=== PATIENT | female | born 1975 | race Asian ===

== ENCOUNTER 2019-01-08 12:11 | Inpatient (IN) | payer OTHER ==
[~2019-01-08] VITALS: Ht 154.9 cm; Wt 79.4 kg
[2019-01-08 13:01] VITALS: BP_SYST 151
[2019-01-08] MEDS ORDERED: PIPERACILLIN/TAZO 3.375 GM in NS 50 ML IV ONE (13:45)
[2019-01-08] MEDS ORDERED: MORPHINE 4 MG/ML INJ. SYRINGE IVP ONE ×2 (13:45→15:45)
[2019-01-08] MEDS ORDERED: ONDANSETRON HCL 4 MG/2 ML VIAL IVP ONE (13:45)
[2019-01-08 14:05] LABS: BASOPHILS % (AUTO) 0.3 % (0.0-2.0); EOSINOPHILS % (AUTO) 0.1 % (0.0-4.0); HEMATOCRIT 39.6 % (36-48); HEMOGLOBIN 13.2 g/dL (12.0-16.0); LYMPHOCYTES # (AUTO) 1.2 K/uL (1.0-5.5); LYMPHOCYTES % (AUTO) 10.4 % (20.5-51.5); MEAN CORPUSCULAR HEMOGLOBIN 28 pg (27-31); MEAN CORPUSCULAR HGB CONC 33 % (32-36); MEAN CORPUSCULAR VOLUME 85 fL (79.0-98.0); MONOCYTES # (AUTO) 0.5 K/uL (0.0-1.0); MONOCYTES % (AUTO) 4.1 % (1.7-9.3); NEUTROPHILS # (AUTO) 10.2 K/uL (1.8-7.7); NEUTROPHILS % (AUTO) 85.1 % (40.0-70.0); PLATELET COUNT (AUTO) 307 K/uL (130-430); RED BLOOD CELL COUNT(AUTO) 4.68 MIL/uL (4.2-6.2); RED CELL DISTRIBUTION WIDTH 13.8 % (9.0-15.0); WHITE BLOOD COUNT (AUTO) 11.9 K/uL (4.8-10.8)
[2019-01-08 14:19] LABS: CALCIUM 8.9 mg/dL (8.4-11.0); CREATININE 0.82 mg/dL (0.55-1.30); POTASSIUM 3.7 mmol/L (3.5-5.1)
[2019-01-08] MEDS ORDERED: PIPERACILLIN/TAZOBACTAM 3.375 GM/VIAL (ZOSYN) IV ONE (14:19)
[2019-01-08] MEDS ORDERED: ONDANSETRON HCL 4 MG/2 ML VIAL ONE (14:22)
[2019-01-08 14:25] LABS: TOTAL BILIRUBIN 0.6 mg/dL (0.0-1.0)
[2019-01-08] MEDS ORDERED: MORPHINE 4 MG/ML INJ. SYRINGE ONE (15:44)
[2019-01-08] MEDS ORDERED: FLU VACC QUAD 2019-20(36MOS UP) 60 MCG/0.5 ML SYRINGE I.M. PRN (16:15)
[2019-01-08] MEDS ORDERED: ONDANSETRON HCL 4 MG/2 ML VIAL IVP PRN (16:30)
[2019-01-08] MEDS ORDERED: MORPHINE 2 MG/ML INJ. SYRINGE IVP PRN (16:30)
[2019-01-08] MEDS ORDERED: ACETAMINOPHEN 650 MG SUPP.RECT RC PRN (17:30)
[2019-01-08] MEDS ORDERED: PANTOPRAZOLE SODIUM 40 MG/VIAL (PROTONIX) IVP ONE (17:30)
[2019-01-08] MEDS ORDERED: HYDROmorphone 1 MG INJ. 1 MG/ML AMPUL IVP ONE (17:30)
[2019-01-08] MEDS ORDERED: ENALAPRILAT DIHYDRATE 1.25 MG/ML VIAL IVP PRN (17:45)
[2019-01-08] MEDS: POTASSIUM CHLORIDE 10 MEQ in NACL 0.9% 1,000 ML IV SCH (18:45)
[2019-01-08] MEDS ORDERED: IOHEXOL 100 ML IV ONE (19:09)
[2019-01-08 20:00] VITALS: BP_SYST 143
[2019-01-08] MEDS: HYDROmorphone 2 MG/ML VIAL IVP PRN (21:14)
[2019-01-08 22:38] LABS: BILIRUBIN,URINE NEGATIVE (NEGATIVE); CLARITY/URINE CLEAR (CLEAR); COLOR,URINE YELLOW (YELLOW); GLUCOSE,URINE NEGATIVE (NEGATIVE); KETONES,URINE 3+ (NEGATIVE); LEUKOCYTE ESTERASE ,URINE NEGATIVE (NEGATIVE); NITRITE, URINE NEGATIVE (NEGATIVE); PROTEIN URINE 2+ (NEGATIVE); UROBILINOGEN,URINE 0.2 (0.2-1.0)
[2019-01-08 22:48] LABS: BLOOD, URINE TRACE (NEGATIVE)
[2019-01-08 22:50] LABS: BACTERIA,URINE FEW /HPF (None Seen); HCG,QUAL RESULT NEGATIVE (NEGATIVE); RBC,URINE 0-3 /HPF (0-3); WBC,URINE 0-3 /HPF (0-3)
[2019-01-09 00:39] VITALS: BP_SYST 119
[2019-01-09] MEDS: HYDROmorphone 2 MG/ML VIAL IVP PRN ×3 (01:13→09:16)
[2019-01-09] MEDS: POTASSIUM CHLORIDE 10 MEQ in NACL 0.9% 1,000 ML IV SCH ×2 (06:01→08:23)
[2019-01-09 06:19] LABS: BASOPHILS % (AUTO) 0.1 % (0.0-2.0); MEAN CORPUSCULAR HEMOGLOBIN 28 pg (27-31); MEAN CORPUSCULAR HGB CONC 33 % (32-36); RED CELL DISTRIBUTION WIDTH 14.3 % (9.0-15.0)
[2019-01-09 06:32] LABS: INR 1.1 (0.8-1.2); PROTHROMBIN TIME 10.6 SECS (9.5-12.5)
[2019-01-09 07:07] LABS: HEMOGLOBIN 12.9 g/dL (12.0-16.0); LYMPHOCYTES # (AUTO) 0.7 K/uL (1.0-5.5); LYMPHOCYTES % (AUTO) 4.4 % (20.5-51.5); MEAN CORPUSCULAR VOLUME 86 fL (79.0-98.0); MONOCYTES # (AUTO) 0.2 K/uL (0.0-1.0); MONOCYTES % (AUTO) 1.6 % (1.7-9.3); NEUTROPHILS # (AUTO) 14.7 K/uL (1.8-7.7); NEUTROPHILS % (AUTO) 93.9 % (40.0-70.0); PLATELET COUNT (AUTO) 276 K/uL (130-430); RED BLOOD CELL COUNT(AUTO) 4.56 MIL/uL (4.2-6.2); WHITE BLOOD COUNT (AUTO) 15.7 K/uL (4.8-10.8)
[2019-01-09 07:36] LABS: ALBUMIN 3.3 g/dL (3.4-4.8); BILIRUBIN,DIRECT 0.2 mg/dL (0.0-0.3); CALCIUM 8.3 mg/dL (8.4-11.0); CREATININE 0.99 mg/dL (0.55-1.30); POTASSIUM 3.4 mmol/L (3.5-5.1); TOTAL BILIRUBIN 0.7 mg/dL (0.0-1.0)
[2019-01-09 08:00] VITALS: BP_SYST 119
[2019-01-09] MEDS: PANTOPRAZOLE SODIUM 40 MG/VIAL (PROTONIX) IVP SCH (08:23)
[2019-01-09] MEDS ORDERED: POTASSIUM CHLORIDE 30 MEQ in NS 250 ML IV ONE (10:00)
[2019-01-09] MEDS ORDERED: LR 1,000 ML IV SCH (13:06)
[2019-01-09] MEDS ORDERED: METOCLOPRAMIDE HCL 10 MG/2 ML VIAL IVP PRN (13:15)
[2019-01-09] MEDS ORDERED: MORPHINE 4 MG/ML INJ. SYRINGE IVP PRN ×2 (13:15)
[2019-01-09] MEDS ORDERED: metroNIDAZOLE 500 mg/NS 100 ML IV SCH (13:45)
[2019-01-09] MEDS ORDERED: ACETAMINOPHEN 325 MG TABLET PO PRN (13:45)
[2019-01-09] MEDS ORDERED: ONDANSETRON HCL 4 MG/2 ML VIAL IVP PRN (13:45)
[2019-01-09] MEDS ORDERED: HYDROcodone/ACETAMIN 5-325 MG TAB (NORCO/ VICODIN) PO PRN (13:45)
[2019-01-09] MEDS: MORPHINE 4 MG/ML INJ. SYRINGE IVP PRN ×2 (14:31→14:44)
[2019-01-09] MEDS ORDERED: MORPHINE 4 MG/ML INJ. SYRINGE ONE (14:41)
[2019-01-09 15:00] VITALS: BP_SYST 151
[2019-01-09] MEDS: HYDROmorphone 1 MG INJ. 1 MG/ML AMPUL IVP PRN ×2 (15:44→19:56)
[2019-01-09 15:56] VITALS: BP_SYST 105
[2019-01-09] MEDS: NACL 0.9% 1,000 ML IV SCH ×2 (19:48→23:38)
[2019-01-09] MEDS: CEFAZOLIN 2 GM IVPB PREMIX 50 ML IV SCH (19:49)
[2019-01-10] MEDS: HYDROmorphone 1 MG INJ. 1 MG/ML AMPUL IVP PRN ×6 (00:23→21:24)
[2019-01-10 00:41] VITALS: BP_SYST 132
[2019-01-10] MEDS: CEFAZOLIN 2 GM IVPB PREMIX 50 ML IV SCH (03:56)
[2019-01-10 06:09] LABS: HEMOGLOBIN 11.2 g/dL (12.0-16.0); MEAN CORPUSCULAR HEMOGLOBIN 28 pg (27-31); MEAN CORPUSCULAR HGB CONC 33 % (32-36); MEAN CORPUSCULAR VOLUME 86 fL (79.0-98.0); PLATELET COUNT (AUTO) 231 K/uL (130-430); RED BLOOD CELL COUNT(AUTO) 3.97 MIL/uL (4.2-6.2)
[2019-01-10 06:22] LABS: ALBUMIN 2.4 g/dL (3.4-4.8); CALCIUM 7.7 mg/dL (8.4-11.0); CREATININE 0.83 mg/dL (0.55-1.30); POTASSIUM 3.5 mmol/L (3.5-5.1); TOTAL BILIRUBIN 0.3 mg/dL (0.0-1.0)
[2019-01-10 07:11] LABS: WHITE BLOOD COUNT (AUTO) 4.1 K/uL (4.8-10.8)
[2019-01-10 07:50] VITALS: BP_SYST 124
[2019-01-10] MEDS: POTASSIUM CHLORIDE 10 MEQ in NACL 0.9% 1,000 ML IV SCH (08:42)
[2019-01-10] MEDS: PANTOPRAZOLE SODIUM 40 MG/VIAL (PROTONIX) IVP SCH (08:42)
[2019-01-10 09:47] LABS: ATYPICAL LYMPHOCYTES % 0 % (0-0); BAND % (MANUAL) 45 % (0-6); BASOPHILS % (MANUAL) 0 % (0-2); EOSINOPHILS % (MANUAL) 0 % (0-7); LYMPHOCYTES % (MANUAL) 10 % (20-46); MONOCYTES % (MANUAL) 10 % (0-11)
[2019-01-10 12:43] VITALS: BP_SYST 118
[2019-01-10] MEDS: LEVOFLOXACIN 500 MG/D5W 100 ML IV SCH (15:04)
[2019-01-10] MEDS ORDERED: metroNIDAZOLE 500 mg/NS 100 ML IV ONE (16:00)
[2019-01-10 16:47] VITALS: BP_SYST 122
[2019-01-10] MEDS: metroNIDAZOLE 500 mg/NS 100 ML IV SCH (21:24)
[2019-01-11 01:50] VITALS: BP_SYST 109
[2019-01-11] MEDS: HYDROmorphone 1 MG INJ. 1 MG/ML AMPUL IVP PRN ×3 (02:56→15:06)
[2019-01-11] MEDS: metroNIDAZOLE 500 mg/NS 100 ML IV SCH ×2 (05:41→14:23)
[2019-01-11 06:36] LABS: BASOPHILS % (AUTO) 0.2 % (0.0-2.0); EOSINOPHILS # (AUTO) 0.2 K/uL (0.0-0.4); EOSINOPHILS % (AUTO) 2.6 % (0.0-4.0); HEMATOCRIT 32.6 % (36-48); HEMOGLOBIN 10.9 g/dL (12.0-16.0); LYMPHOCYTES # (AUTO) 0.7 K/uL (1.0-5.5); LYMPHOCYTES % (AUTO) 10.6 % (20.5-51.5); MEAN CORPUSCULAR HEMOGLOBIN 29 pg (27-31); MEAN CORPUSCULAR HGB CONC 33 % (32-36); MEAN CORPUSCULAR VOLUME 85 fL (79.0-98.0); MONOCYTES # (AUTO) 0.4 K/uL (0.0-1.0); MONOCYTES % (AUTO) 6.6 % (1.7-9.3); NEUTROPHILS # (AUTO) 4.9 K/uL (1.8-7.7); PLATELET COUNT (AUTO) 216 K/uL (130-430); RED BLOOD CELL COUNT(AUTO) 3.82 MIL/uL (4.2-6.2); RED CELL DISTRIBUTION WIDTH 14.2 % (9.0-15.0)
[2019-01-11 07:14] LABS: CALCIUM 7.8 mg/dL (8.4-11.0); CREATININE 0.6 mg/dL (0.55-1.30); POTASSIUM 3.6 mmol/L (3.5-5.1)
[2019-01-11 08:05] VITALS: BP_SYST 157
[2019-01-11 08:15] LABS: WHITE BLOOD COUNT (AUTO) 6.2 K/uL (4.8-10.8)
[2019-01-11] MEDS: PANTOPRAZOLE SODIUM 40 MG/VIAL (PROTONIX) IVP SCH (09:35)
[2019-01-11] MEDS: POTASSIUM CHLORIDE 10 MEQ in NACL 0.9% 1,000 ML IV SCH ×3 (11:44)
[2019-01-11 12:32] VITALS: BP_SYST 132
[2019-01-11] MEDS: LEVOFLOXACIN 500 MG/D5W 100 ML IV SCH (15:47)
[2019-01-11 16:16] VITALS: BP_SYST 127
[2019-01-11] MEDS ORDERED: METR500T PO (16:24)
[2019-01-11] MEDS ORDERED: LEVO750T45 PO (16:24)
[2019-01-11] MEDS ORDERED: HYDR-4272 PO (16:25)
[2019-01-11 16:38] VITALS: BP_SYST 127
[2019-01-11] MEDS ORDERED: PROPOFOL 200MG/ 20ML VIAL (DIPRIVAN) IV ONE (17:04)
[2019-01-11] MEDS ORDERED: GLYCOPYRROLATE 0.2 MG/ML VIAL IJ ONE (17:04)
[2019-01-11] MEDS ORDERED: MIDAZOLAM HCL 5 MG/5 ML VIAL IVP ONE (17:04)
[2019-01-11] MEDS ORDERED: DEXAMETHASONE SOD PHOSPHATE 4 MG/ML VIAL IVP ONE (17:04)
[2019-01-11] MEDS ORDERED: LR 1,000 ML IV.SOLN IV ONE (17:04)
[2019-01-11] MEDS ORDERED: ONDANSETRON HCL 4 MG/2 ML VIAL IVP ONE (17:04)
[2019-01-11] MEDS ORDERED: ROCURONIUM BROMIDE 10 MG/ML (ZEMURON) IV ONE (17:04)
[2019-01-11] MEDS ORDERED: SEVOFLURANE 15 MIN GAS INH ONE (17:04)
[2019-01-11] MEDS ORDERED: NEOSTIGMINE METHYLSULFATE 1 MG/ML, 10 ML VIAL IVP ONE (17:04)
[2019-01-11] MEDS ORDERED: BUPIVACAINE /PF 0.25% 30 ML VIAL INJ ONE (17:04)
[2019-01-11] MEDS ORDERED: fentaNYL CITRATE 250 MCG/5 ML AMP IV ONE (17:04)
== END 2019-01-11 17:05 | disposition home or self-care (01) | DRG 417 ==
LOC: SED 12:11 → SMU 14:57 → STU 01-09 13:56
PROVIDERS: ADMIT Internal Medicine; ATTEND Internal Medicine
PROC: 0FT44ZZ Resection of Gallbladder, Percutaneous Endoscopic Approach (ICD-10-PCS; principal; 2019-01-08)
PROC: 0DNU4ZZ Release Omentum, Percutaneous Endoscopic Approach (ICD-10-PCS; 2019-01-08)
PROC: 0W9G4ZZ Drainage of Peritoneal Cavity, Percutaneous Endoscopic Approach (ICD-10-PCS; 2019-01-08)
DX: K81.0 Acute cholecystitis (principal); J86.9 Pyothorax without fistula; K66.0 Peritoneal adhesions (postprocedural) (postinfection); Z79.899 Other long term (current) drug therapy
CPT/HCPCS: 36415; 71045; 80048; 80053; 80076; 81000-TC; 82150-TC; 83605; 83690-TC; 83735-TC; 84703; 85007; 85025; 85027; 85610-TC; 85730-TC; 86886; 86900; 86901; 87040-TC; 87070-TC; 87075-TC; 87081; 87186-TC; 88304; 93005; 94010; 94760; 96365; 96375; 96376; 99285; C1727; C9113; G0378; J0690; J1100; J1170; J1956; J2250; J2270; J2405; J2543; J2704; J2710; J3010; J3480; J3490; J7030; J7050; J7120; Q9967